=== PATIENT | female | born 1945 | race Caucasian/White ===

== ENCOUNTER 2019-01-23 09:12 | Inpatient (IN) | payer OTHER ==
[2019-01-08 12:44] VITALS: BMI 33.1
--- NOTE | 2019-01-23 07:55 | HP ---
Satellite H - Chief Complaint Chief Complaint: right knee pain - Past Medical History Allergies/Adverse Reactions: Allergies Allergy/AdvReac Type Severity Reaction Status Date / Time No Known Drug Allergies Allergy Verified 10/13/14 18:34 SEASONAL Allergy STUFFY NOSE Uncoded 10/13/14 18:34 - Current Medications Current Medications: Home Medications Medication Instructions Recorded Lisinopril [Prinivil] 40 mg PO DAILY 03/21/13 Oxybutynin Chloride [Oxybutynin 5 mg PO TID 03/21/13 Chloride ER] Acetaminophen [Tylenol 500 mg PO Q8H #30 tablet 10/13/14 .Extra-Strength -] Albuterol Sulfate Inhaler - 2 inh IH Q4H PRN #1 inh 10/13/14 [Ventolin HFA Inhaler -] Diclofenac Sodium [Voltaren] 100 gm TP BID PRN 01/08/19 Furosemide [Lasix] 20 mg PO DAILY 01/08/19 Loratadine 10 mg PO DAILY 01/08/19 Montelukast Na [Singulair -] 10 mg PO HS 01/08/19 Simvastatin 40 mg PO HS 01/08/19 Satellite Physical Exam - Physical Examination General Appearance: Well Nourished, Well Developed, Alert & Oriented x3 ENT: Clear Lung: Normal air movement Heart: Regular rate & rhythm Extremities: Other (right knee- + swelling, + ttp, dec rom, nvi xrays show grade 4 tricompartmental djd) Neurological: Intact, Alert, Oriented Satellite Impression/Plan - Impression/Plan Impression: right knee djd Operative Procedure: right matt tkr Date to be Performed: 01/23/19
[2019-01-23] MEDS ORDERED: oxyCODONE HCL 10 MG SUSTAINED ACTING TABLET ONE (09:50)
[2019-01-23] MEDS ORDERED: CELECOXIB 200 MG CAPSULE ONE (09:51)
[2019-01-23] MEDS ORDERED: GABAPENTIN 300 MG CAPSULE (FP) ONE (09:51)
[2019-01-23] MEDS ORDERED: CEFAZOLIN 2 GM/D5W 2 GM/50 ML ML IVPB ONE (09:56)
[2019-01-23] MEDS ORDERED: CELECOXIB 200 MG CAPSULE PO ONE (09:56)
[2019-01-23] MEDS ORDERED: GABAPENTIN 300 MG CAPSULE (FP) PO ONE (09:56)
[2019-01-23] MEDS ORDERED: TRANEXAMIC ACID 1000 MG/10 ML VIAL IVPUSH ONE (09:56)
[2019-01-23] MEDS ORDERED: oxyCODONE HCL 10 MG SUSTAINED ACTING TABLET PO ONE (09:56)
[2019-01-23] MEDS ORDERED: BUPIVACAINE LIPOSOME/PF (EXPAREL) 266 MG/20 ML VIAL ONE (10:34)
[2019-01-23] MEDS ORDERED: MIDAZOLAM HCL 2 MG/2 ML SINGLE DOSE VIAL ONE (10:34)
[2019-01-23] MEDS ORDERED: ceFAZolin SODIUM 1 GM VIAL ONE ×2 (10:57→11:22)
[2019-01-23] MEDS ORDERED: VANCOMYCIN 1,000 MG VIAL (RESTRICTED TO ID ONLY) ONE (10:57)
[2019-01-23] MEDS ORDERED: TRANEXAMIC ACID 1000 MG/10 ML VIAL ONE (11:22)
[2019-01-23] MEDS ORDERED: DEXAMETHASONE SOD PHOSPHATE 4 MG/1 ML VIAL ONE (11:22)
[2019-01-23] MEDS ORDERED: ONDANSETRON 4 MG/2 ML VIAL ONE (11:22)
[2019-01-23] MEDS ORDERED: ePHEDrine SULFATE 50 MG/1 ML AMPULE ONE (11:43)
[2019-01-23] MEDS ORDERED: ALBUTEROL SO4 8 GM HFA INHALER IH PRN (12:46)
[2019-01-23] MEDS ORDERED: MAG HYDROX/AL HYDROX/SIMETH 30 ML UNIT-DOSE CUP PO PRN (12:47)
[2019-01-23] MEDS ORDERED: ONDANSETRON 4 MG/2 ML VIAL IVPUSH PRN ×2 (12:47→13:40)
[2019-01-23] MEDS ORDERED: MAGNESIUM HYDROX 2400MG/30ML ORAL SUSPENSION 30 ML CUP PO PRN (12:47)
--- NOTE | 2019-01-23 12:48 | OP ---
Operative Note - Note: Operative Date: 01/23/19 ([place]) Pre-Operative Diagnosis: right knee djd Operation: right matt tkr Post-Operative Diagnosis: Same as Pre-op Surgeon: Eliseo Ward Marine Engineer Cpvec: Chuckie Arrieta Anesthesiologist/DIGITAL COMPOSER: Daphne Gomez Anesthesia: Spinal, Local Specimens Removed: bone fragments Estimated Blood Loss (mls): 200 Operative Report Dictated: Yes
[2019-01-23] MEDS ORDERED: LACTATED RINGERS SOLUTION 1,000 ML IV SCH (13:00)
--- NOTE | 2019-01-23 13:19 | SPEC ---
DATE OF OPERATION: 01/23/2019 PREOPERATIVE DIAGNOSIS: Degenerative joint disease, right knee. POSTOPERATIVE DIAGNOSIS: Degenerative joint disease, right knee. PROCEDURE: Right total knee replacement, cementless Press-Fit with robotic-assisted navigation (MAKOplasty). SURGICAL ATTENDING: Eliseo Ward MD COPYING MACHINE REPAIRER: MAHENDRA Chandler ANESTHESIA: Regional and spinal. CLOSURE: A Press-Fit Triathlon knee system with a 4 femur, 4 tibia, 9 polyethylene, 32 patella; No. 1 Vicryl, fascia; 0 and 2-0, subcutaneous; and 3-0 Monocryl subcuticular with skin glue for skin; 4-0 undyed Vicryl for pin sites. ESTIMATED BLOOD LOSS: Approximately 100 mL. COMPLICATIONS: None. CONDITION: To recovery room in stable condition. DESCRIPTION OF OPERATIVE PROCEDURE: Patient was taken to the operating room on January 23, 2019. Regional and spinal anesthesia was administered by the anesthesiologist. IV Kefzol was administered prophylactically prior to the case as well as TXA. The right lower extremity was prepped and draped in the usual sterile fashion. The midline 10- to 12-cm longitudinal incision was made. Hemostasis was achieved with Bovie cautery. Sharp dissection was carried down to the extensor mechanism which was perform the procedure. Medial parapatellar arthrotomy was then performed, leaving a cuff of tissue for later closure. The patella was inverted and the knee was flexed up. The fat pad was excised. Subperiosteal dissection was done on the anteromedial proximal tibia until the knee was able to be brought forward. This was facilitated by taking the ACL, PCL and medial and lateral menisci. Checkpoints were placed in both the femur and in the tibia. Two parallel threaded pins were drilled superior to the knee joint through the already made incision from anterior to posterior just going through the anterior cortex but just engaging but not going through the posterior cortex. Two threaded pins were drilled through 2 small stab incisions in parallel fashion 1 handbreadth below the tibial tubercle through the anterior cortex of the tibia and engaging but not going through the posterior cortex. Both sets of pins were attached to navigation arrays for the MARITZA system. The knee was then registered with the navigation system with center of rotation of the hip, medial and lateral malleoli and multiple sites both on the tibia and on the femur. Confirmation of excellent registration was confirmed by "popping the bubbles." At this time, the knee was thoroughly inspected to remove all osteophytes around the knee. The knee was then tensioned in varus/valgus at both full extension and at 90 degrees of flexion to ascertain our gaps. The virtual position of the components was optimized to ensure equal gaps throughout the range of motion. Once this was performed, the robot was brought into the field, was registered. The bone was cut as per the specifications on both the tibia and on the femur. The box cuts were then made as well. Excellent trial stability was obtained on the femur. The tibial baseplate was allowed to "find itself" and then was clipped into place. Confirmation of excellent external rotation of that component was confirmed by the navigation device as well.The patella was calibered for thickness and cut at the appropriate level. The appropriate lollipop was used to drill 3 holes in the patella and a trial asymmetric patellar button was applied. The knee was taken through a range of motion and found to have excellent stability from full extension to full flexion with excellent tracking of the patella. The trial components were then removed. The lug holes were drilled in the femur. The cementless keel was punched in the tibia. The real Press-Fit components were malleted into place, first with the tibia and then with the femur, and then the patella was crimped into place as well. The real polyethylene liner was then clipped into place. Range of motion, stability and tracking were as described earlier. The knee was thoroughly irrigated with copious amounts of irrigation. Vancomycin powder was placed inside the joint. The medial parapatellar arthrotomy was then closed using No. 1 Vicryl interrupted suture. Post closure of the arthrotomy, the knee was taken through a range of motion and found to have no undue tension on the repair. The subcutaneous was then pulse antibiotic irrigated, closed with 0 and 2-0 Vicryl and 3-0 Monocryl subcuticular with skin glue for the skin. Prior to closure, the checkpoints were removed as were the threaded pins. The tibial pin sites were closed with 4-0 undyed Vicryl. A sterile pressure Aquacel dressing was applied. No tourniquet was used during the case. The total blood loss was approximately 100 mL. No complication. Patient was transferred to recovery in stable condition. Rafael [id number]
[2019-01-23] MEDS ORDERED: oxyCODONE HCL 5 MG TABLET PO PRN (13:40)
[2019-01-23] MEDS: ACETAMINOPHEN 1000 MG/100 ML VIAL (NON FORMULARY) IVPB ONE ×2 (13:45→15:33)
[2019-01-23] MEDS ORDERED: ACETAMINOPHEN INJECTION 100 ML IVPB ONE (13:47)
[2019-01-23] MEDS: LACTATED RINGERS SOLUTION 1,000 ML IV SCH (15:33)
[2019-01-23] MEDS: OXYBUTYNIN CHLORIDE 5 MG TABLET PO SCH ×2 (15:34→21:44)
[2019-01-23] MEDS: CEFAZOLIN 2 GM/D5W 2 GM/50 ML ML IVPB SCH (19:16)
[2019-01-23] MEDS: MONTELUKAST NA 10 MG TABLET PO SCH (21:44)
[2019-01-23] MEDS: ATORVASTATIN CA 20 MG TABLET (FP) PO SCH (21:44)
[2019-01-23] MEDS: SENNOSIDES/DOCUSATE COMBO (SENNA PLUS) TABLET (UD) PO SCH (21:44)
[2019-01-23] MEDS: oxyCODONE HCL 10 MG SUSTAINED ACTING TABLET PO SCH (21:44)
[2019-01-23] MEDS: GABAPENTIN 300 MG CAPSULE (FP) PO SCH (21:44)
[2019-01-24] MEDS: CEFAZOLIN 2 GM/D5W 2 GM/50 ML ML IVPB SCH (01:39)
[2019-01-24] MEDS: OXYBUTYNIN CHLORIDE 5 MG TABLET PO SCH ×3 (06:39→21:12)
[2019-01-24] MEDS: oxyCODONE HCL 5 MG TABLET PO PRN ×3 (07:21→20:31)
--- NOTE | 2019-01-24 07:28 | PN ---
Progress Note (short form) - Note Progress Note: Ortho Pt seen and examined s/p right matt tkr pod #1 Selected Entries 01/24/19 03:00 Temperature 97.8 F Pulse Rate 62 Respiratory 20 Rate Blood Pressure 119/56 L Laboratory Tests 01/24/19 06:50 WBC Pending Hgb Pending Hct Pending Plt Count Pending dressing c/d/i, calf soft, nt rom 0-20, nvi a/p PT dvt ppx pain control d/c home tomorrow if stable
[2019-01-24] MEDS: ASPIRIN 325 MG TABLET PO SCH (08:00)
[2019-01-24 08:27] LABS: HEMOGLOBIN 12.3 GM/dl (10.7-15.3); MCH 32.9 pg (25.7-33.7); MEAN CELL VOLUME 96.7 fl (80-96); MEAN PLT VOLUME 9.8 fl (7.5-11.1); PLATELET COUNT 118 K/MM3 (134-434); RBC 3.72 M/mm3 (3.60-5.2); WHITE BLOOD COUNT 8.3 K/mm3 (4.0-10.8)
[2019-01-24] MEDS: SENNOSIDES/DOCUSATE COMBO (SENNA PLUS) TABLET (UD) PO SCH ×2 (09:39→21:12)
[2019-01-24] MEDS: MULTIVITAMINS (DAILY MVI) TABLET (FP) PO SCH (09:39)
[2019-01-24] MEDS: oxyCODONE HCL 10 MG SUSTAINED ACTING TABLET PO SCH ×2 (09:39→21:13)
[2019-01-24] MEDS: GABAPENTIN 300 MG CAPSULE (FP) PO SCH ×2 (09:39→21:12)
[2019-01-24] MEDS: FUROSEMIDE 20 MG TABLET (FP) PO SCH (09:39)
[2019-01-24] MEDS: LORATADINE 10 MG TABLET PO SCH (09:39)
[2019-01-24] MEDS: PANTOPRAZOLE 40 MG TABLET (FP) PO SCH (09:39)
[2019-01-24] MEDS: LISINOPRIL 20 MG TABLET (FP) PO SCH (09:39)
[2019-01-24] MEDS: LACTATED RINGERS SOLUTION 1,000 ML IV SCH (13:17)
--- NOTE | 2019-01-24 14:45 | PN ---
Progress Note (short form) - Note Progress Note: 74F POD1 s/p R TKR under spinal anesthetic with peripheral nerve blocks Pt states that pain is well controlled and reports no anesthetic complications. AVSS. Motor and sensory exam intact in bilateral lower extremities. Continue current regimen.
[2019-01-24] MEDS: MONTELUKAST NA 10 MG TABLET PO SCH (21:13)
[2019-01-24] MEDS: ATORVASTATIN CA 20 MG TABLET (FP) PO SCH (21:13)
[2019-01-25] MEDS: OXYBUTYNIN CHLORIDE 5 MG TABLET PO SCH ×2 (06:18→13:54)
[2019-01-25 08:29] LABS: HEMATOCRIT 31.1 % (32.4-45.2); HEMOGLOBIN 10.7 GM/dl (10.7-15.3); MCH 33.3 pg (25.7-33.7); MCHC 34.3 g/dl (32.0-36.0); MEAN CELL VOLUME 97.2 fl (80-96); MEAN PLT VOLUME 10.4 fl (7.5-11.1); PLATELET COUNT 106 K/MM3 (134-434); RDW 13.2 % (11.6-15.6); WHITE BLOOD COUNT 9.5 K/mm3 (4.0-10.8)
--- NOTE | 2019-01-25 08:32 | PN ---
Progress Note (short form) - Note Progress Note: Ortho Pt seen and examined s/p right matt tkr pod #2 Selected Entries 01/25/19 06:22 Temperature 99.5 F Pulse Rate 79 Respiratory 19 Rate Blood Pressure 111/69 Laboratory Tests 01/24/19 06:50 WBC 8.3 Hgb 12.3 Hct 36.0 Plt Count 118 L dressing c/d/i, calf soft, nt rom 0-30, nvi a/p PT dvt ppx pain control d/c home today f/u in the office in 1 week
--- NOTE | 2019-01-25 08:33 | DS ---
Physical Examination Vital Signs: Vital Signs Temperature 99.5 F 01/25/19 06:22 Pulse Rate 79 01/25/19 06:22 Respiratory Rate 19 01/25/19 06:22 Blood Pressure 111/69 01/25/19 06:22 O2 Sat by Pulse Oximetry (%) 95 01/25/19 08:26 Discharge Summary Reason For Visit: OSTEOARTHRITIS Procedures: Principal: right tkr Hospital Course: admitted for elective right matt tkr, uneventful post-op, stable for d/c Condition: Good - Instructions Diet, Activity, Other Instructions: Post-op Instructions-Total Knee Replacement Call the office for a follow-up appointment in 1 week - [phone] Aspirin 325mg daily for 6 weeks. Pain medication was sent into your pharmacy. Apply Graduated Compression Stockings (TEDs) to both lower extremities- remove daily for hygiene ONLY Apply Sequential Compression Device (SCDs) to both Lower extremities remove for PT and hygiene ONLY Apply cold packs to affected area for 15 minutes every 2 hours. Physical Therapist will come to your home for the first 5 days. You will be set up with outpatient PT at your first post-operative visit. Patient may ambulate as tolerated-encourage self care (at least every 2-3 hours while awake) with walker or cane Maintain Aquacel (waterproof) dressing to operative wound (will be removed by surgeon at first office visit) Shower with Aquacel dressing in place-if Aquacel integrity compromised, remove and apply dry sterile dressing and notify Orthopedist. DO NOT SHOWER unless Orthopedists approves without Aquacel dressing CONTACT THE OFFICE FOR ANY CHANGE IN YOUR CONDITION (for example-fever greater than 102 degrees, excessive bleeding from operative site, purulent drainage, severe swelling or pain) GO TO THE EMERGENCY ROOM IF THERE IS A MEDICAL EMERGENCY Knee Precautions: * Keep a rolled towel under affected heel while in bed or chair (to keep knee in extension) * Keep affected leg elevated except during mealtimes * DO NOT PLACE PILLOW UNDER AFFECTED KNEE * If you have any questions, please do not hesitate to call the office - [phone]. Referrals: Eliseo Ward MD [Staff Physician] - Disposition: VNS/HOME HEALTH CARE - Home Medications Comprehensive Discharge Medication List: Ambulatory Orders Lisinopril [Prinivil -] 40 mg PO DAILY 03/21/13 Oxybutynin Chloride [Oxybutynin Chloride ER] 5 mg PO TID 03/21/13 Acetaminophen [Tylenol .Extra-Strength -] 500 mg PO Q8H #30 tablet 10/13/14 Albuterol Sulfate Inhaler - [Ventolin HFA Inhaler -] 2 inh IH Q4H PRN #1 inh 01/22 Diclofenac Sodium [Voltaren] 100 gm TP BID PRN 01/08/19 Furosemide [Lasix] 20 mg PO DAILY 01/08/19 Loratadine 10 mg PO DAILY 01/08/19 Montelukast Na [Singulair -] 10 mg PO HS 01/08/19 Simvastatin 40 mg PO HS 01/08/19 Aspirin [ASA -] 325 mg PO DAILY@0800 tablet 01/23/19 Oxycodone HCl/Acetaminophen [Percocet 5-325 mg Tablet -] 1 - 2 tab PO Q6H #50 tab MDD 8 01/23/19
[2019-01-25] MEDS: ASPIRIN 325 MG TABLET PO SCH (09:19)
[2019-01-25] MEDS: LORATADINE 10 MG TABLET PO SCH (09:19)
[2019-01-25] MEDS: LISINOPRIL 20 MG TABLET (FP) PO SCH (09:19)
[2019-01-25] MEDS: SENNOSIDES/DOCUSATE COMBO (SENNA PLUS) TABLET (UD) PO SCH (09:19)
[2019-01-25] MEDS: PANTOPRAZOLE 40 MG TABLET (FP) PO SCH (09:19)
[2019-01-25] MEDS: MULTIVITAMINS (DAILY MVI) TABLET (FP) PO SCH (09:20)
[2019-01-25] MEDS: GABAPENTIN 300 MG CAPSULE (FP) PO SCH (09:20)
[2019-01-25] MEDS: FUROSEMIDE 20 MG TABLET (FP) PO SCH (09:20)
[2019-01-25] MEDS: oxyCODONE HCL 10 MG SUSTAINED ACTING TABLET PO SCH (09:21)
[2019-01-25] MEDS: oxyCODONE HCL 5 MG TABLET PO PRN (13:54)
[2019-01-25 14:04] VITALS: BP 102/49; PULSE 73; TEMP 98.4
[2019-01-25] MEDS: LACTATED RINGERS SOLUTION 1,000 ML IV SCH (15:15)
--- NOTE | 2019-01-25 15:59 | PATH ---
Surgical Pathology Report Patient Name: BENITO BIRD Med. Rec. #: [id number] /Age/Gender: 1945 (Age: 74) / F Account: [id number] Location: [facility] Taken: 01/23/2019 Received: 01/23/2019 Reported: 01/25/2019 Physicians: Eliseo Ward M.D. Specimen(s) Received BONES RIGHT KNEE Clinical History Osteoarthritis right knee Final Diagnosis KNEE BONES, RIGHT, TOTAL KNEE REPLACEMENT: DEGENERATIVE JOINT DISEASE. Electronically Signed Alexandria Doss M.D. Gross Description Received in formalin labeled "bones right knee," is an 8.5 x 7.0 x 2.0 cm aggregate of bustos bone and soft tissue fragments, consistent with knee bones. There is a 1.8 cm greatest dimension area of eburnation identified. The remaining articular surfaces are bustos-yellow and diffusely granular. The underlying trabecular bone is yellow and hard. Page Makeup System Operator sections are submitted in one cassette, following decalcification. /01/24/2019 [facility]01/[facility]
== END 2019-01-25 15:45 | disposition home health service (06) | DRG 470 ==
LOC: FM/S 09:12
PROVIDERS: ADMIT Orthopaedic Surgery; ATTEND Orthopaedic Surgery
PROC: 0SRC0JA Replacement of Right Knee Joint with Synthetic Substitute, Uncemented, Open Approach (ICD-10-PCS; principal; 2019-01-23 11:34)
DX: M17.11 Unilateral primary osteoarthritis, right knee (principal)
CPT/HCPCS: 36415; 73560-TC-RT-FY; 85027; 88304-TC; 88311-TC; 94760; 97116-GP; 97163-GP; J0131

== ENCOUNTER 2019-05-23 08:50 | Day surgery (SDC) | payer OTHER ==
[2019-05-22 17:02] VITALS: BMI 31.2
[~2019-05-23 08:50] MED LIST: ACETAMINOPHEN 325 MG TABLET (FP) PO PRN
[2019-05-23] MEDS ORDERED: PHENYLEPHRINE 2.5% OPHTH SOLN 15 ML BOTTLE ONE (09:05)
[2019-05-23] MEDS ORDERED: TROPICAMIDE 1% OPHTH SOLN 15 ML BOTTLE ONE (09:05)
[2019-05-23] MEDS ORDERED: OFLOXACIN 0.3% OPHTHALMIC SOLUTION 5 ML BOTTLE ONE (09:05)
[2019-05-23] MEDS ORDERED: CYCLOPENTOLATE HCL 1% OPHTH SOLN 2 ML BOTTLE ONE (09:05)
[2019-05-23] MEDS ORDERED: KETOROLAC TROMETHAMINE 0.5% EYE DROP 1 DROP DROPS ONE (09:06)
[2019-05-23] MEDS: PHENYLEPHRINE 2.5% OPHTH SOLN 15 ML BOTTLE OP SCH ×3 (09:15→09:25)
[2019-05-23] MEDS: CYCLOPENTOLATE HCL 1% OPHTH SOLN 2 ML BOTTLE OP SCH ×3 (09:15→09:25)
[2019-05-23] MEDS: TROPICAMIDE 1% OPHTH SOLN 15 ML BOTTLE OP SCH ×3 (09:15→09:25)
[2019-05-23] MEDS: KETOROLAC TROMETHAMINE 0.5% EYE DROP 1 DROP DROPS OP SCH ×3 (09:15→09:25)
[2019-05-23] MEDS: OFLOXACIN 0.3% OPHTHALMIC SOLUTION 5 ML BOTTLE OP SCH ×3 (09:15→09:25)
[2019-05-23] MEDS ORDERED: TETRACAINE 0.5% OPHTH SOLN 2 ML BOTTLE OS ONE (09:59)
[2019-05-23] MEDS ORDERED: MIDAZOLAM HCL 2 MG/2 ML SINGLE DOSE VIAL ONE (10:01)
[2019-05-23] MEDS ORDERED: POVIDONE-IODINE 5% OPHTHALMIC PREP 30 ML SOLUTION OS ONE (10:03)
[2019-05-23] MEDS ORDERED: BSS (NA/CA/MG/K) BALANCED SALT SOLUTION OPHTH SOLN 15 ML BOTTLE OS ONE (10:08)
[2019-05-23] MEDS ORDERED: LIDOCAINE HCL 1% PRESERVATIVE FREE - 30ML VIAL IO ONE (10:08)
[2019-05-23] MEDS ORDERED: CHONDROITIN SU A/HYALUR SOD 1 KIT IO ONE (10:08)
[2019-05-23] MEDS ORDERED: EPINEPHrine/PF 1 MG/1 ML (1:1,000) AMPULE SQ ONE (10:13)
[2019-05-23] MEDS ORDERED: EPINEPHrine/PF 1 MG/1 ML (1:1,000) AMPULE ONE (10:39)
[2019-05-23] MEDS ORDERED: LIDOCAINE HCL/PF 1% SDV 5ML VIAL ONE (10:39)
[2019-05-23] MEDS ORDERED: TETRACAINE 0.5% OPHTH SOLN 2 ML BOTTLE ONE (10:40)
[2019-05-23 10:55] VITALS: TEMP 98.3
[2019-05-23 11:48] VITALS: BP 135/77; PULSE 66
[2019-05-23] MEDS ORDERED: CHONDROITIN SU A/HYALUR SOD 1 KIT ONE (12:59)
--- NOTE | 2019-05-23 13:08 | SPEC ---
DATE OF OPERATION: 05/23/2019 OPERATION: Phacoemulsification of left cataract with posterior chamber intraocular lens implantation, left eye. Lens used [id number], 7.0 Diopter power, Serial No. [id number]. PREOPERATIVE DIAGNOSIS: Cataract, left eye. POSTOPERATIVE DIAGNOSIS: Cataract, left eye. SURGEON: Tierra Waletr M.D. ANESTHESIA: Topical MAC. COMPLICATIONS: None. PROCEDURE: The patient was brought to the operating room and correctly identified along with the operative site and the correct intraocular lens hester. The patient was then prepped and draped in the usual sterile fashion including 5% Betadine solution in the conjunctival sac and an eyelid drape. An eyelid speculum was then placed in the eye. A paracentesis port was created and approximately 0.5 mL of preservative free Lidocaine was then injected into the eye. Viscoelastic was then injected to inflate the anterior chamber. A temporal clear corneal wound was created. A continuous circular capsulorrhexis was performed. The nucleus was then hydrodissected with BSS and removed with phacoemulsification. The remaining cortical material was irrigated and aspirated. Viscoelastic was injected to inflate the capsular bag and the intraocular lens was then implanted into the capsular bag. The remaining Viscoelastic was irrigated and aspirated from the eye. The IOL was noted to be well centered and completely covered by the anterior capsulorrhexis. Topical vancomycin was placed and the eye patched and shielded. All wounds were tested and found to be watertight. No suture was placed. The eye was then shielded. The patient was then discharged from the operating room in stable condition. TIERRA WALTER M.D. [id number]
== END 2019-05-23 11:20 | disposition home or self-care (01) ==
LOC: JASU-SURG 08:50
PROVIDERS: ATTEND Ophthalmology
PROC: 08RK3JZ Replacement of Left Lens with Synthetic Substitute, Percutaneous Approach (ICD-10-PCS; principal; 2019-05-23 10:00)
DX: H26.9 Unspecified cataract (principal)

== ENCOUNTER 2022-01-04 04:50 | Day surgery (SDC) | payer OTHER ==
[2021-12-31 08:31] VITALS: BMI 24.3
[2022-01-04] MEDS ORDERED: SODIUM CHLORIDE 500 ML IV SCH (10:30)
[2022-01-04] MEDS ORDERED: MIDAZOLAM HCL 2 MG/2 ML SINGLE DOSE VIAL IVPUSH ONE ×2 (10:38→10:55)
[2022-01-04 15:02] VITALS: BP 110/60; PULSE 62; TEMP 98
== END 2022-01-04 15:15 | disposition home or self-care (01) ==
LOC: JRADIR 04:50
PROVIDERS: ATTEND Internal Medicine Gastroenterology
PROC: BF45ZZZ Ultrasonography of Liver (ICD-10-PCS; principal; 2022-01-04)
PROC: 0FD13ZX Extraction of Right Lobe Liver, Percutaneous Approach, Diagnostic (ICD-10-PCS; 2022-01-04)
DX: K74.69 Other cirrhosis of liver (principal); K76.0 Fatty (change of) liver, not elsewhere classified; R94.5 Abnormal results of liver function studies
CPT/HCPCS: 47000; 76942-TC; 87899; 88305-TC; 88313-TC